=== PATIENT | female | born 1985 | race Hispanic/Latino ===

== ENCOUNTER 2019-03-13 13:47 | Inpatient (IN) | payer OTHER ==
[2019-03-13 14:14] VITALS: BMI 39.2
[2019-03-13] MEDS ORDERED: Acetaminophen 500 MG TAB PO PRN (14:26)
[2019-03-13] MEDS ORDERED: Meperidine HCl/PF 25 MG/ML VIAL IM/IV PRN (14:26)
[2019-03-13] MEDS ORDERED: HYDROcodone/Acetaminophen 5/325 mg Tablet PO PRN (14:26)
[2019-03-13] MEDS ORDERED: Ibuprofen 800 MG TAB PO PRN (14:26)
[2019-03-13] MEDS ORDERED: Carboprost 250 MCG/ML AMP IM PRN (14:26)
[2019-03-13] MEDS ORDERED: NS / Oxytocin 40 units/1000ml 1,000 ML IV PRN (14:26)
[2019-03-13] MEDS ORDERED: Calcium Gluc 4.6 MEQ/10 ML (100 MG/ML) SLOW IVP PRN (14:26)
[2019-03-13] MEDS ORDERED: Misoprostol 200 MCG TAB PR PRN (14:26)
[2019-03-13] MEDS ORDERED: Butorphanol Tartrate 1 MG/ML VIAL SLOW IVP PRN (14:26)
[2019-03-13] MEDS ORDERED: Methylergonovine 0.2 MG/ML VIAL IM PRN (14:26)
[2019-03-13] MEDS ORDERED: hydrALAZINE 20 MG/ML VIAL SLOW IVP PRN (14:26)
[2019-03-13] MEDS ORDERED: Ondansetron PF 4 MG/2 ML Vial IVP PRN (14:26)
[2019-03-13] MEDS ORDERED: Lidocaine 1% (PF) 30 ML VIAL SC PRN (14:26)
[2019-03-13] MEDS ORDERED: Promethazine HCl 25 MG/ML VIAL IM PRN (14:26)
[2019-03-13] MEDS: Lactated Ringer's 1,000 ML IV SCH (15:00)
[2019-03-13] MEDS: NS w/ Oxytocin 10 units 500 ML IV SCH (15:00)
[2019-03-13 15:16] LABS: Hemoglobin 13.8 g/dL (12.0-16.0); Mean Corpuscular HGB CONC 35.9 g/dL (32.0-36.0); Mean Corpuscular Hemoglobin 32.2 pg (27.0-31.0); Mean Corpuscular Volume 89.8 fL (78.0-98.0); Mean Platelet Volume 8.3 fL (7.4-10.4); Platelet Count 241 thou/uL (130-400); RBC Distribution Width 12.6 % (11.5-14.5); Red Blood Cell (RBC) Count 4.29 mill/uL (4.20-5.40); White Blood Cell (WBC) Count 11.3 thou/uL (4.8-10.8)
[2019-03-13 15:34] LABS: ALT (SGPT) 9 U/L (8-55); AST (SGOT) 12 U/L (5-34); Albumin 3.6 g/dL (3.5-5.0); Alkaline Phosphatase 225 U/L (40-150); Anion Gap 16 mmol/L (10-20); BUN (Urea Nitrogen) 14 mg/dL (7.0-18.7); Bilirubin, Total 0.3 mg/dL (0.2-1.2); Calc. Creatinine Clearance 172 mL/min (70-130); Calcium 9.5 mg/dL (7.8-10.44); Carbon Dioxide 16 mmol/L (22-29); Chloride 109 mmol/L (98-107); Estimated GFR-MDRD Greater than 90; Globulin 3.2 g/dL (2.4-3.5); Glucose 91 mg/dL (70-105); Potassium 4.4 mmol/L (3.5-5.1); Protein, Total 6.8 g/dL (6.0-8.3); Sodium 137 mmol/L (136-145)
[2019-03-13 15:53] LABS: HBSAg Index 0.24 S/CO (0-0.99); Hep B Surf Ag Non-Reactive S/CO (NonReactive); Syphilis Antibody Nonreactive (Nonreactive); Syphilis Antibody Index 0.04 S/CO (<1.00 Non-Reactive)
[2019-03-14] MEDS: NS w/ Oxytocin 10 units 500 ML IV SCH ×2 (06:49→16:42)
[2019-03-14] MEDS ORDERED: Fentanyl 4 mcg/Bup 0.1% Cadd 100 ML ONE ×2 (10:50→18:14)
[2019-03-14] MEDS ORDERED: Acetaminophen 325 MG TAB PO PRN (11:14)
[2019-03-14] MEDS ORDERED: ePHEDrine/0.9% NaCl/PF SYRINGE 50 mg/10 ml SLOW IVP PRN (11:14)
[2019-03-14] MEDS ORDERED: Ondansetron PF 4 MG/2 ML Vial IVP PRN (11:14)
[2019-03-14] MEDS ORDERED: Promethazine HCl 25 MG/ML VIAL IM PRN (11:14)
[2019-03-14] MEDS ORDERED: Lactated Ringer's 500 ML IV PRN (11:14)
[2019-03-14] MEDS ORDERED: diphenhydrAMINE 50 MG/ML VIAL IVP PRN (11:14)
[2019-03-14] MEDS ORDERED: Naloxone HCl 0.4 mg/ml Vial IVP PRN ×2 (11:14)
[2019-03-14] MEDS ORDERED: Communication Order-Pharmacy FS SCH (11:15)
[2019-03-14] MEDS ORDERED: Fentanyl 4 mcg/Bupivacaine 0.1% Cassette 100 ML EPIDURAL SCH (11:15)
[2019-03-14] MEDS: Lactated Ringer's 1,000 ML IV SCH (12:24)
--- NOTE | 2019-03-14 15:11 | PDOC.LDHP ---
Labor and Delivery H&P Chief complaint: scheduled induction (Sent from office for IOL sedcondary to mild preeclampsia) HPI: Seen in office this AM. FOund to have slightly elevated blood pressures and proteinuria, 3+, minimal edema, reactive NST. Discussed preeclampsia with pt and her . Given that she is 40 weeks and has mild range BP we decided to induce her labor. Current gestational age (weeks): 40 Due date: 03/13/19 Dating criteria: first trimester ultrasound Grav: 1 Para: 0 Current complications: gestational diabetes (Taking metformin, glucose well controlled throughout .), preeclampsia without severe features Abnormal US findings: No Current medications: pre- vitamins, other (Metformin) Allergies/Adverse Reactions: Allergies Allergy/AdvReac Type Severity Reaction Status Date / Time No Known Allergies Allergy Unverified 03/13/19 14:14 Social history: none - Physical Exam General: NAD Heart: RRR Lungs: CTAB Abdomen: gravid Extremeties: trace edema FHT: category 1 - Vaginal Exam cm dilated: 2 Effacement: 50% Station: -2 - OB Labs Blood type: AB RH: negative Antibody Screen: negative HIV: negative RPR: negative HEPSAg: negative 1 hour GCT: positive GBS: negative Urine drug screen: not done Rubella: immune - Assessment L&D Assessment: medically indicated induction - Plan Plan: admit to L&D, labor augmentation if indicated (Magnesium if BP becomes severe range, for now mild range only. No meds needed. Will need rhogam PP if baby not Rh(-).)
--- NOTE | 2019-03-14 15:15 | PDOC.EVN ---
Event Note - Event Note Event Note: Pt seen this AM. /-2. AROM with clear fluid. FHT category I. Continue with pitocin IOL. Mom and baby tolerating well. Glucose in labor 91. Can check accucheck if symptomatic. Clear liquids by mouth OK.
--- NOTE | 2019-03-14 15:16 | PDOC.EVN ---
Event Note - Event Note Event Note: Pt seen and plan discussed. Continues to make progress in labor, though contraction pattern not quite adequate. SVE at noon was /-1. IUPC in place and MVU under 200 on 24 units of pitocin. Discussed taking a half hour break from the pitocin if not changed at the next check. FWB remains category I.
[2019-03-15] MEDS ORDERED: Azithromycin 500 MG VIAL ONE (00:56)
[2019-03-15] MEDS ORDERED: Azithromycin 500 MG in Sodium Chloride 0.9% 250 ML 250 ML IVPB SCH (01:00)
[2019-03-15] MEDS ORDERED: Bicitra 30 ML UDCUP PO SCH (01:00)
[2019-03-15] MEDS ORDERED: CEFAZOLIN 2 GM in Premix Bag 1 BAG IVPB SCH (01:00)
--- NOTE | 2019-03-15 01:06 | PDOC.EVN ---
Event Note - Event Note Event Note: At bedside for the last hour with patient pushing. Minimal progress after pushing for 2 hours. Too high to consider vacuum assist. Concern for shoulder dystocia with primip, GDM, slow labor, and minimal descent with pushing. Discussed at length with mom and dad and they are in agreement with plan to move forward with delivery. FHT tachycardic with baseline 180 with minimal to moderate variability. Category II. Dr. Acevedo notified. Anesthesia called as well.
[2019-03-15] MEDS ORDERED: Lidocaine 2% 10 ML INJ ONE (01:55)
[2019-03-15] MEDS ORDERED: Oxytocin 10 UNITS/ML VIAL ONE (02:01)
[2019-03-15] MEDS ORDERED: MORPHINE 5 MG/10 ML PF VIAL ONE (02:24)
[2019-03-15 02:53] LABS: pH (Cord, venous) 7.32 (7.32-7.43)
--- NOTE | 2019-03-15 03:20 | PDOC.OPDEL ---
OB Operative/Delivery Note Delivery Dr/Surgeon: Chiquita Acevedo MD Assist: Shasta Aparicio MD Pre-Delivery Diagnosis: other (arrest of descent) Procedure/Post Delivery Dx: primary low transverse CS Weeks gestation: 40 Anesthesia: epidural - Findings A Sex: male Weight: 7 lb 4.192 oz - 1 min: 7 - 5 min: 9 - Additional Findings/Plan Placenta delivered: spontaneous findings: low transverse hysterotomy without extension Estimated blood loss: 889/200 Post delivery plan: routine recovery
[2019-03-15] MEDS ORDERED: Meperidine HCl/PF 25 MG/ML VIAL SLOW IVP PRN (03:24)
[2019-03-15] MEDS ORDERED: Naloxone HCl 0.4 mg/ml Vial IVP PRN ×2 (03:24)
[2019-03-15] MEDS ORDERED: Naloxone HCl 0.4 mg/ml Vial IV PRN (03:24)
[2019-03-15] MEDS ORDERED: Promethazine HCl 25 MG SUPP PR PRN (03:24)
[2019-03-15] MEDS ORDERED: Ondansetron HCl/PF 4 MG/2 ML Vial IVP PRN (03:24)
[2019-03-15] MEDS ORDERED: diphenhydrAMINE 50 MG/ML VIAL IVP PRN (03:24)
[2019-03-15] MEDS ORDERED: Promethazine HCl 25 MG/ML VIAL IM PRN (03:24)
[2019-03-15] MEDS ORDERED: Ondansetron PF 4 MG/2 ML Vial IVP PRN (03:24)
[2019-03-15] MEDS ORDERED: Ketorolac Tromethamine 30 MG/ML VIAL IVP PRN (03:24)
[2019-03-15] MEDS ORDERED: L&D-Morphine 4 MG/ML VIAL SLOW IVP PRN (03:24)
[2019-03-15] MEDS ORDERED: HYDROmorphone 2 MG/ML VIAL SLOW IVP PRN (03:24)
[2019-03-15] MEDS ORDERED: Ketorolac Tromethamine 30 MG/ML VIAL IVP SCH (03:30)
[2019-03-15] MEDS ORDERED: Communication Order-Pharmacy FS SCH (03:30)
[2019-03-15] MEDS ORDERED: Ondansetron PF 4 MG/2 ML Vial ONE (04:26)
--- NOTE | 2019-03-15 05:02 | OP ---
DATE OF PROCEDURE: 03/15/2019 PREOPERATIVE DIAGNOSES: 1. Forty week intrauterine . 2. Arrest of descent. POSTOPERATIVE DIAGNOSES: 1. Forty week intrauterine . 2. Arrest of descent. PROCEDURE: Primary low-transverse . SENIOR FINANCIAL CONSULTANT: Shasta Aparicio MD. ANESTHESIA: Epidural. COMPLICATIONS: None. ESTIMATED BLOOD LOSS: 900 mL. FINDINGS: Normal uterus, tubes, and ovaries. Vigorous male in cephalic presentation with significant caput with 7 and 9. INDICATIONS FOR PROCEDURE: The patient pushed for [address] Aparicio and made little descent. Fetus had periods of non-reassuring heart tones. The decision was made to proceed with low-transverse . DESCRIPTION OF PROCEDURE: The patient was taken to the operating room where her epidural anesthesia was found to be adequate. She was prepared and draped in normal sterile fashion in the dorsal supine position with leftward tilt. A Pfannenstiel skin incision was made with a scalpel and carried down to the underlying layer of fascia. The fascia was incised in midline, extended laterally with Pitts scissors. The fascia was tented up with Smith clamps and the rectus muscles were dissected off sharply. The rectus muscles were in the midline and the peritoneum was identified and entered bluntly. The peritoneal opening was extended superiorly and inferiorly with good visualization of the bladder. An Sumit retractor was placed in the abdomen. An incision was made in the lower uterine segment and extended in a cephalocaudal fashion with traction. The infant's head was delivered atraumatically followed by the body without difficulty. The nose and mouth were suctioned with bulb suction. The cord was clamped and cut. The infant was handed off to the waiting nursery team. The placenta was removed and the uterus was cleared of all clots and debris. The uterine incision was repaired in a running locked fashion with #1 Monocryl in 2 layers with good hemostasis. The gutters were cleared of clots. The abdomen was irrigated copiously and the Sumit was removed from the abdomen. The fascia was repaired in a running fashion with 0 PDS. The subcutaneous tissue was reapproximated with plain gut and the skin was reapproximated with 4-0 Monocryl and covered with a silver impregnated dressing. The patient tolerated the procedure well. Sponge, lap, needle counts were correct x2. The patient was taken the recovery room in stable condition. Job ID: [id number] [facility]
[2019-03-15] MEDS ORDERED: diphenhydrAMINE 25 MG CAP PO PRN (06:17)
[2019-03-15] MEDS ORDERED: HYDROcodone/Acetaminophen 5/325 mg Tablet PO PRN ×2 (06:17→15:30)
[2019-03-15] MEDS ORDERED: Lanolin Ointment 7 GM TUBE TOP PRN (06:17)
[2019-03-15] MEDS ORDERED: Bisacodyl 10 MG SUPP PR PRN (06:17)
[2019-03-15] MEDS ORDERED: Simethicone Chewable 80 MG TAB PO PRN (06:17)
[2019-03-15] MEDS ORDERED: hydrALAZINE 20 MG/ML VIAL SLOW IVP PRN (06:17)
[2019-03-15] MEDS: Lactated Ringer's 1,000 ML IV SCH ×2 (06:37→07:36)
[2019-03-15] MEDS: Docusate Calcium (SURFAK) 240 MG CAP PO SCH (07:37)
[2019-03-15] MEDS: Ibuprofen 800 MG TAB PO SCH ×2 (07:37→16:50)
[2019-03-15] MEDS: HYDROcodone/Acetaminophen 5/325 mg Tablet PO PRN (16:49)
[2019-03-15] MEDS ORDERED: Adacel (T-DAP) 0.5 ML SYRINGE IM ONE (21:00)
[2019-03-16] MEDS: Docusate Calcium (SURFAK) 240 MG CAP PO SCH ×3 (00:21→23:29)
[2019-03-16] MEDS: Ibuprofen 800 MG TAB PO SCH ×4 (00:21→23:29)
[2019-03-16 06:25] LABS: Hemoglobin 9.8 g/dL (12.0-16.0); Mean Corpuscular HGB CONC 34.2 g/dL (32.0-36.0); Mean Corpuscular Hemoglobin 31.7 pg (27.0-31.0); Mean Corpuscular Volume 92.6 fL (78.0-98.0); Mean Platelet Volume 7.7 fL (7.4-10.4); Platelet Count 192 thou/uL (130-400); RBC Distribution Width 12.9 % (11.5-14.5); White Blood Cell (WBC) Count 13.1 thou/uL (4.8-10.8)
--- NOTE | 2019-03-16 12:36 | PDOC.PP ---
Post Progress Note Post Day #: 1 Subjective: Doing well, walking back and forth to NICU b/c baby there on IV fluids for hypoglycemia PO intake tolerated: yes Flatus: yes Ambulation: yes Vital Signs (12 hours) Temp Pulse Resp BP Pulse Ox 03/16/19 08:22 98.3 F 101 H 20 130/67 98 03/16/19 05:10 98.3 F 110 H 18 115/56 L Weight Weight 208 lb - Physical Examination General: NAD Cardiovascular: no m/r/g, RRR Respiratory: clear to auscultation bilaterally, non-labored breathing Abdominal: + bowel sounds, lochia, no distention, appropriately TTP Extremities: negative homans (B) Skin: CS incision dry & intact Neurological: no gross focal deficits Psychiatric: A&Ox3 Result Diagrams: 03/16/19 06:06 03/13/19 15:03 Additional Labs: Post Labs Blood Type AB NEGATIVE 03/13/19 15:03 Hep Bs Antigen Non-Reactive S/CO (NonReactive) 03/13/19 15:03 (1) delivery delivered Code(s): O82 - ENCOUNTER FOR DELIVERY WITHOUT INDICATION Status: Acute - Assessment/Plan Doing well on post-op day 1 Continue to work on D/C when baby out of NICU and feeding better
[2019-03-16] MEDS: HYDROcodone/Acetaminophen 5/325 mg Tablet PO PRN ×2 (16:44→23:29)
[2019-03-17] MEDS: Ibuprofen 800 MG TAB PO SCH ×3 (05:50→23:55)
[2019-03-17] MEDS: Docusate Calcium (SURFAK) 240 MG CAP PO SCH ×2 (08:32→19:48)
--- NOTE | 2019-03-17 15:14 | PDOC.PP ---
Post Progress Note Post Day #: 2 Subjective: Doing well post-op day 2. In NICU with baby when I rounded today - caring for him at bedside. PO intake tolerated: yes Flatus: yes Ambulation: yes Vital Signs (12 hours) Temp Pulse Resp BP Pulse Ox 03/17/19 11:23 98.1 F 101 H 20 120/79 03/17/19 08:01 98.6 F 92 20 120/64 98 03/17/19 05:50 97.6 F 98 18 133/74 Weight Weight 208 lb - Physical Examination General: NAD Cardiovascular: no m/r/g, RRR Respiratory: clear to auscultation bilaterally, non-labored breathing Abdominal: + bowel sounds, lochia, no distention, appropriately TTP Skin: CS incision dry & intact Neurological: no gross focal deficits Result Diagrams: 03/16/19 06:06 03/13/19 15:03 Additional Labs: Post Labs Blood Type AB NEGATIVE 03/13/19 15:03 Hep Bs Antigen Non-Reactive S/CO (NonReactive) 03/13/19 15:03 (1) delivery delivered Code(s): O82 - ENCOUNTER FOR DELIVERY WITHOUT INDICATION Status: Acute - Assessment/Plan Routine post-op care. D/C when baby stable and out of NICU Maybe tomorrow, maybe Wednesday Continue to ambulate and care for baby
[2019-03-17] MEDS: HYDROcodone/Acetaminophen 5/325 mg Tablet PO PRN (19:48)
[2019-03-18] MEDS: Ibuprofen 800 MG TAB PO SCH ×2 (05:53→13:35)
[2019-03-18] MEDS: Docusate Calcium (SURFAK) 240 MG CAP PO SCH (07:52)
[2019-03-18 08:14] VITALS: TEMP 98.2
[2019-03-18 09:44] VITALS: BP 131/85
--- NOTE | 2019-03-18 10:14 | PDOC.PP ---
Post Progress Note Post Day #: 3 Subjective: Doing well. Routine post-op course PO intake tolerated: yes Flatus: yes Ambulation: yes Vital Signs (12 hours) Temp Pulse Resp BP BP BP Pulse Ox 03/18/19 09:44 94 18 131/85 03/18/19 07:10 98.2 F 97 18 150/74 H 98 03/18/19 05:45 97.8 F 96 18 144/75 H 03/18/19 00:00 97.9 F 99 20 145/89 H Weight Weight 208 lb - Physical Examination General: NAD Cardiovascular: no m/r/g, RRR Respiratory: clear to auscultation bilaterally, non-labored breathing Abdominal: + bowel sounds, lochia, no distention, appropriately TTP Skin: CS incision dry & intact Psychiatric: A&Ox3 Result Diagrams: 03/16/19 06:06 03/13/19 15:03 Additional Labs: Post Labs Blood Type AB NEGATIVE 03/13/19 15:03 Hep Bs Antigen Non-Reactive S/CO (NonReactive) 03/13/19 15:03 (1) delivery delivered Code(s): O82 - ENCOUNTER FOR DELIVERY WITHOUT INDICATION Status: Acute - Assessment/Plan Routine post-op care D/C home
[2019-03-18] MEDS: HYDROcodone/Acetaminophen 5/325 mg Tablet PO PRN (11:38)
== END 2019-03-18 14:00 | disposition home or self-care (01) | DRG 788 ==
LOC: L&D 13:47 → 3SW 03-15 05:47
PROVIDERS: ADMIT Family Medicine; ATTEND Family Medicine
PROC: 10D00Z1 Extraction of Products of Conception, Low, Open Approach (ICD-10-PCS; principal; 2019-03-15)
PROC: 3E033VJ Introduction of Other Hormone into Peripheral Vein, Percutaneous Approach (ICD-10-PCS; 2019-03-15)
PROC: 10H07YZ Insertion of Other Device into Products of Conception, Via Natural or Artificial Opening (ICD-10-PCS; 2019-03-15)
DX: O14.04 Mild to moderate pre-eclampsia, complicating childbirth (principal); O24.425 Gestational diabetes mellitus in childbirth, controlled by oral hypoglycemic drugs; O48.0 Post-term pregnancy; O62.1 Secondary uterine inertia; Z3A.40 40 weeks gestation of pregnancy; Z37.0 Single live birth
CPT/HCPCS: 36415; 36416; 51702; 80053; 82805; 85027; 86780; 86850; 86900; 86901; 87340; 88307; J0456; J0690; J1200; J2001; J2274; J2310; J2405; J2590; J3490; Q0163